=== PATIENT | male | born 1995 | race Caucasian/White ===

== ENCOUNTER → 2018-03-08 | Outpatient (CLI) | payer BC ==
--- NOTE | 2018-03-08 21:11 | RADIOLOGY REPORT (SQ) ---
EXAM DESCRIPTION: MRI CERVICAL SPINE WITHOUT COMPLETED DATE/TIME: 03/08/2018 8:55 pm REASON FOR STUDY: IMPINGEMENT SYNDROME OF LEFT SHOULDER, RADICULOPATHY,CERVICAL REGION M75.42 IMPIN GEMENT SYNDROME OF LEFT SHOULDER M54.12 RADICULOPATHY, CERVICAL REGION COMPARISON: None. TECHNIQUE: Sagittal and Axial imaging includes T1, T2, STIR and gradient echo sequences. LIMITATIONS: None. FINDINGS: ALIGNMENT: Normal. VERTEBRAE: Intact. BONE MARROW: Normal. No marrow replacement or reactive changes. DISCS: Normal. No significant abnormal signal or loss of height. HARDWARE: None in the spine. CORD AND BASE OF BRAIN: Normal in size and signal intensity. SOFT TISSUES: No soft tissue masses. C1-C2: No significant spinal stenosis. C2-C3: No significant spinal stenosis or exit foraminal stenosis. C3-C4: No significant spinal stenosis or exit foraminal stenosis. C4-C5: No significant spinal stenosis or exit foraminal stenosis. C5-C6: No significant spinal stenosis or exit foraminal stenosis. C6-C7: Left paracentral and lateral disc protrusion. Disc material contacts the left side of the cer vical cord and causes left lateral recess stenosis and left exit foraminal stenosis. C7-T1: No significant spinal stenosis or exit foraminal stenosis. UPPER THORACIC: Incompletely imaged. No significant spinal stenosis or exit foraminal stenosis. OTHER: No other significant finding. IMPRESSION: LEFT PARACENTRAL AND LATERAL DISC PROTRUSION AT C6-C7 WITH IMPINGEMENT OF THE CORD AND L EFT LATERAL RECESS STENOSIS AND LEFT EXIT FORAMINAL STENOSIS. THE REMAINDER OF THE CERVICAL SPINE IS OTHERWISE UNREMARKABLE. TECHNICAL DOCUMENTATION: JOB ID: [id number]- All Rights Reserved Reading location - IP/workstation name: [email or web address]
--- NOTE | 2018-03-09 15:47 | RADIOLOGY REPORT (SQ) ---
EXAM DESCRIPTION: MRI LT UPPER JOINT WITHOUT COMPLETED DATE/TIME: 03/08/2018 8:55 pm REASON FOR STUDY: IMPINGEMENT SYNDROME OF LEFT SHOULDER, RADICULOPATHY,CERVICAL REGION M75.42 IMPIN GEMENT SYNDROME OF LEFT SHOULDER M54.12 RADICULOPATHY, CERVICAL REGION COMPARISON: None. TECHNIQUE: Left shoulder images acquired and stored on PACS. Multiplanar imaging to include fat sens itive sequences such as T1, water sensitive sequences such as FST2/STIR, cartilage sensitive sequence s such as FSPD/gradient-echo sequences. LIMITATIONS: None. FINDINGS: BONE MARROW AND CORTEX: No worrisome bone lesions or marrow replacement. No occult fractur es. JOINT OR BURSAL EFFUSION: No significant joint or bursal fluid. No suggestion of loose bodies. GLENO-HUMERAL ARTICULATION: Normal articulation. No subluxation. No cystic change. No osteophytes or cartilage loss. ACROMION AND AC JOINT: AC joint intact without significant overgrowth or widening. Slight lateral down slope of the acromion, type 2. Minimal subacromial space narrowing. No bulky osteophytes, cid joleen. ROTATOR CUFF AND INTERVAL: No significant tear or signal alteration. No cuff muscle atrophy. No rotator interval tear. No rotator interval thickening to suggest adhesive capsulitis. LABRUM AND BICEPS LABRAL COMPLEX: Very subtle fraying along the undersurface of the superior labrum and biceps anchor. Biceps tendon intact. No paralabral cyst evident. REMAINDER OF LABRUM AND IGHL : No gross tear or paralabral cyst formation. Labral evaluation is less than optimal without joint distention. No thickening of IGHL to suggest adhesive capsulitis. PERIARTICULAR AND ADJACENT SOFT TISSUES: No masses or abnormal nodes. OTHER: No other significant finding. IMPRESSION: 1. Rotator cuff intact. 2. Minimal superior labral fraying. Biceps tendon intact. TECHNICAL DOCUMENTATION: JOB ID: [id number] [employer]- All Rights Reserved Reading location - IP/workstation name: [email or web address]
== END ==
LOC: RAD 19:39
PROVIDERS: ATTEND Family Medicine
DX: M75.42 Impingement syndrome of left shoulder (principal); M54.12 Radiculopathy, cervical region
CPT/HCPCS: 72141

== ENCOUNTER → 2018-07-27 | Outpatient (CLI) | payer BC ==
--- NOTE | 2018-07-27 15:55 | RADIOLOGY REPORT (SQ) ---
EXAM DESCRIPTION: CERV SP 3 VIEW OR LESS COMPLETED DATE/TIME: 07/27/2018 3:08 pm REASON FOR STUDY: CERVICAL DISC DISORDER W RADICULOPATHY, UNSP CERVICAL REGION M50.10 CERVICAL DISC DISORDER W RADICULOPATHY, UNSP CERVICAL COMPARISON: None. TECHNIQUE: Lateral neutral, flexion and extension radiographs of the spine. NUMBER OF VIEWS: Three views. LIMITATIONS: None. FINDINGS: Normal alignment, maintained throughout flexion and extension. No abnormal motion. OTHER: There are postsurgical changes at C6-C7. IMPRESSION: Postsurgical changes at C6-C7. No instability. TECHNICAL DOCUMENTATION: JOB ID: [id number] [employer]- All Rights Reserved Reading location - IP/workstation name: [email or web address]
== END ==
LOC: RAD 14:45
PROVIDERS: ATTEND Physician Assistant
DX: M50.10 Cervical disc disorder with radiculopathy, unspecified cervical region (principal)
CPT/HCPCS: 72040

== ENCOUNTER → 2018-08-24 | Outpatient (CLI) | payer BC ==
--- NOTE | 2018-08-24 14:00 | RADIOLOGY REPORT (SQ) ---
EXAM DESCRIPTION: CERV SP 3 VIEW OR LESS COMPLETED DATE/TIME: 08/24/2018 12:07 pm REASON FOR STUDY: CERVICAL DISC DISORDER W RADICULOPATHY, UNSP CERVICAL REGION M50.10 CERVICAL DISC DISORDER W RADICULOPATHY, UNSP CERVICAL COMPARISON: 07/27/2018 NUMBER OF VIEWS: Two views. TECHNIQUE: AP and lateral radiographic images acquired of the cervical spine. LIMITATIONS: None. FINDINGS: Alignment is normal. Disc prosthesis C6-7 is unchanged. Prevertebral soft tissues are no rmal. IMPRESSION: Postsurgical changes C6-7. TECHNICAL DOCUMENTATION: JOB ID: [id number] [employer]- All Rights Reserved Reading location - IP/workstation name: [email or web address]
== END ==
LOC: RAD 11:51
PROVIDERS: ATTEND Neurological Surgery
DX: M50.10 Cervical disc disorder with radiculopathy, unspecified cervical region (principal)
CPT/HCPCS: 72040